=== PATIENT | male | born 1995 | race Caucasian/White ===

== ENCOUNTER 2020-09-28 12:57 | Emergency (ER) | payer OTHER ==
[~2020-09-28] VITALS: Ht 165.1 cm; Wt 72.6 kg
[~2020-09-28 12:57] MED LIST: albuterol
[2020-09-28 13:01] VITALS: BP 121/62
== END 2020-09-28 14:26 | disposition home or self-care (01) ==
LOC: MED 12:57
DX: J45.909 Unspecified asthma, uncomplicated (principal); J20.9 Acute bronchitis, unspecified; F12.10 Cannabis abuse, uncomplicated; Z20.828 Contact with and (suspected) exposure to other viral communicable diseases
CPT/HCPCS: 71045; 99283